=== PATIENT | male | born 1985 | race Caucasian/White ===

== ENCOUNTER 2018-10-23 05:35 | Emergency (ER) | payer SELFPAY ==
--- NOTE | 2018-10-23 05:54 | PDOC ---
History of Present Illness - General Stated Complaint: L SIDED FACIAL PAIN Time Seen by Provider: 10/23/18 05:53 - History of Present Illness Initial Comments: 10/23/18 06:02 Mr. Schultz is a 33 yo male w/ pmh of prior wisdom teeth surgery who presents for evalution of left sided dental pain. Patient reports he started to have pain around 7pm last night that he was initially able to control with motrin. Presents this morning as he has continued to have pain. Denies any trauma to area or inciting factors. The patient denies chest pain, shortness of breath, headache and dizziness. Denies fever, chills, nausea, vomit, diarrhea and constipation. Denies dysuria, frequency, urgency and hematuria. Past History - Past Medical History Allergies/Adverse Reactions: Allergies Allergy/AdvReac Type Severity Reaction Status Date / Time No Known Allergies Allergy Verified 10/23/18 05:54 Home Medications: Ambulatory Orders Penicillin V Potassium [Pen Vee K -] 250 mg PO QID #28 tablet 10/23/18 Review of Systems - Review of Systems Comments:: 10/23/18 05:54 GENERAL/CONSTITUTIONAL: No fever or chills. No weakness. HEAD, EYES, EARS, NOSE AND THROAT: +Left sided mandible pain as described. No change in vision. No ear pain or discharge. No sore throat. CARDIOVASCULAR: No chest pain or shortness of breath RESPIRATORY: No cough, wheezing, or hemoptysis. GASTROINTESTINAL: No nausea, vomiting, diarrhea or constipation. GENITOURINARY: No dysuria, frequency, or change in urination. MUSCULOSKELETAL: No joint or muscle swelling or pain. No neck or back pain. SKIN: No rash NEUROLOGIC: No headache, vertigo, loss of consciousness, or change in strength/ sensation. ENDOCRINE: No increased thirst. No abnormal weight change HEMATOLOGIC/LYMPHATIC: No anemia, easy bleeding, or history of blood clots. ALLERGIC/IMMUNOLOGIC: No hives or skin allergy. *Physical Exam - Physical Exam Comments: 10/23/18 05:54 GENERAL: Awake, alert, and fully oriented, in no acute distress HEAD: No signs of trauma, normocephalic, atraumatic EYES: PERRLA, EOMI, sclera anicteric, conjunctiva clear ENT: Auricles normal inspection, hearing grossly normal, nares patent, oropharynx clear without exudates. Moist mucosa NECK: Normal ROM, supple, no lymphadenopathy, JVD, or masses LUNGS: No distress, speaks full sentences, clear to auscultation bilaterally HEART: Regular rate and rhythm, normal S1 and S2, no murmurs, rubs or gallops, peripheral pulses normal and equal bilaterally. ABDOMEN: Soft, nontender, normoactive bowel sounds. No guarding, no rebound. No masses EXTREMITIES: Normal inspection, Normal range of motion, no edema. No clubbing or cyanosis. NEUROLOGICAL: Cranial nerves II through XII grossly intact. Normal speech, normal gait, no focal sensorimotor deficits SKIN: Warm, Dry, normal turgor, no rashes or lesions noted. Medical Decision Making - Medical Decision Making 10/23/18 06:12 Mr. Schultz is a 33 yo male w/ pmh as described who presents for evaluation of dental pain. Exam negative and pain not reproducible. Patient advised that he needs to be evaluated by dental specialist for further care. Patient pain controlled with oral percocet and ABX given in ER and sent to patient pharmacy for prophylaxis. Discharging patient to home for further outpatient evalaution. *DC/Admit/Observation/Transfer Diagnosis at time of Disposition: Pain, dental - Discharge Dispostion Disposition: HOME - Referrals Referrals: Wilson Feldman DDS [Staff Physician] - Manuel Farris MD [Other Staff,non-medical] - Neymar Pitt MD [Non Staff, Medical] - Adelia Bullard MD [Non Staff, Medical] - - Patient Instructions Printed Discharge Instructions: DI for Dental Pain Additional Instructions: You were evaluated today in the ER for your dental pain. We gave you pain medication and started you on antibiotics. We have also provided you with dental information that you may use for follow-up. Please take all antibiotics as proscribed and follow-up with dentist for further evaluation early next week. Return to ER if any fever, chills, increase in pain, or other concerning symptoms. - Post Discharge Activity
[2018-10-23] MEDS ORDERED: PENICILLIN V POTASSIUM 250 MG/5 ML 100 ML BOTTLE PO ONE (06:07)
--- NOTE | 2018-10-23 06:29 | PDOC ---
Attending Attestation - Resident Resident Name: RandyamiayannaKennedy - ED Attending Attestation I have performed the following: I have examined & evaluated the patient, The case was reviewed & discussed with the resident, I agree w/resident's findings & plan - HPI HPI: 10/23/18 06:25 Pt comes with tooth pain - Physicial Exam PE: 10/23/18 06:25 Agree with resident exam - Medical Decision Making 10/23/18 06:26 Home with Heath
[2018-10-23 06:59] VITALS: BP 161/93; PULSE 85; TEMP 98.4; BMI 30.3
== END 2018-10-23 06:23 | disposition home or self-care (01) ==
LOC: JER 05:35
DX: K08.89 Other specified disorders of teeth and supporting structures (principal)
CPT/HCPCS: 99281-25